=== PATIENT | female | born 2000 | race Caucasian/White ===

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

== ENCOUNTER 2020-10-06 08:07 | Emergency (ER) | payer OTHER, SELFPAY ==
[2020-10-06 08:17] VITALS: BP 127/80; PULSE 71; RESP 18; TEMP 36.6; O2SAT 100
--- NOTE | 2020-10-06 08:20 | ED.FEMALEGU ---
HPI - Female Genitourinary General Chief complaint: Urogenital-Female Stated complaint: poss uti Time Seen by Provider: 10/06/20 08:20 Source: patient History of Present Illness HPI Narrative: PATIENT PRESENTS WITH BURNING WHITH URINATION NO ABDOMINAL PAIN NO PELVIC PAIN NO CONCERN FOR STD NO GROSS HEMATURIA MD elicited complaint: dysuria and UTI Related Data Home Medications Medication Instructions Recorded Confirmed hydrocodone-acetaminophen 1 tablet PO DAILY PRN 12/15/18 03/09/19 Allergies Allergy/AdvReac Type Severity Reaction Status Date / Time cinnamon Allergy Severe ANAPHALAXIS Verified 10/06/20 08:24 ketorolac [From Toradol] Allergy Swelling Verified 10/06/20 08:25 tramadol Allergy Swelling Verified 10/06/20 08:24 APPLE JUICE Allergy Intermediate LIPS AND Uncoded 03/09/19 15:38 THROAT SWELLING Review of Systems Review of Systems: CONSTITUTIONAL: Denies fever, chills, or sweats. EYES: Denies visual changes, redness, or discharge. ENT: Denies rhinorrhea, congestion, sore throat, or otalgia. CARDIOVASCULAR: Denies chest pain, palpitations, or edema. RESPIRATORY: Denies cough or dyspnea. GASTROINTESTINAL: Denies abdominal pain, nausea, vomiting, or diarrhea. GENITOURINARY: Denies dysuria or hematuria. SKIN: Denies rash or itching. MUSCULOSKELETAL: Denies back pain, joint pain, or myalgia. NEUROLOGIC: Denies headache, numbness, or weakness. PSYCHIATRIC: Denies anxiety or depression. PMFSH Comments At time of signature, agree with nursing past medical, surgical, social and family history. There is no relevant family history pertinent to the presenting complaint Exam Narrative: GENERAL: Well-appearing, well-nourished, and in no acute distress. HEAD: Normocephalic, atraumatic. EYES: PERRLA and EOMI. ENT: Nares clear, no rhinorrhea or epistaxis. Mucous membranes moist. NECK: Supple. CHEST: Clear to auscultation. No respiratory distress. HEART: Regular rate and rhythm. No murmur heard. Normal peripheral pulses. ABDOMEN: Soft, nontender, nondistended, normal active bowel sounds. EXTREMITIES: Normal range of motion. No edema. SKIN: Warm, dry, no rash. NEURO: No focal deficits. Alert and oriented x3. [place] Coma Scale Eye Opening: Spontaneous 4 [place] Coma Scale Motor: Obeys Commands 6 [place] Coma Scale Verbal: Oriented 5 [place] Coma Scale Total 15 Course Vital Signs Vital signs: Vital Signs Temperature 36.6 C 10/06/20 08:17 Pulse Rate 71 10/06/20 08:17 Respiratory Rate 18 10/06/20 08:17 Blood Pressure 127/80 10/06/20 08:17 Pulse Oximetry 100 10/06/20 08:17 Temperature 36.6 C 10/06/20 08:17 Pulse Rate 71 10/06/20 08:17 Respiratory Rate 18 10/06/20 08:17 Blood Pressure 127/80 10/06/20 08:17 Pulse Oximetry 100 10/06/20 08:17 Critical dx considered and discussed with pt. Educated patient on red flag s/s and to go to ED if s/s occur. Discussed with pt when to return to [facility] or primary care provider. Pt gave verbal understanding, all questions were answered, and pt was agreeable to plan Regarding diagnosis, Regarding diagnostic results, Regarding treatment plan, Regarding prescription, Patient indicated understanding of instructions. Critical dx considered and discussed with pt. Educated patient on red flag s/s and to go to ED if s/s occur. Discussed with pt when to return to [facility] or primary care provider. Pt gave verbal undertstanding, all questions were answered, and pt was agreeable to plan.. MDM - Female Genitourinary Differential Diagnosis Differential diagnosis: Likely urinary tract infection, bacterial vaginosis, trichomoniasis, cervicitis, ovarian cyst, vaginitis, ruptured ovarian cyst, cyst of Bartholin's gland, cystitis, dysmenorrhea and other Medical Records Attestation: I reviewed the patient's medical records. Lab Data Labs: Urine Glucose Negative Refere
== END 2020-10-06 08:35 | disposition home or self-care (01) ==
PROVIDERS: Emergency Provider Nurse Practitioner Family; PCP Family Medicine
DX: N39.0 Urinary tract infection, site not specified (principal); M41.9 Scoliosis, unspecified
CPT/HCPCS: 81003; 87077; 87086; 87088; 87186; 99213; G0463

== ENCOUNTER 2020-11-09 09:06 | Emergency (ER) | payer OTHER, SELFPAY ==
--- NOTE | 2020-11-09 09:08 | ED.FEMALEGU ---
HPI - Female Genitourinary General Chief complaint: Urogenital-Female Stated complaint: poss UTI or bladder infection Time Seen by Provider: 11/09/20 09:08 Source: patient and RN notes reviewed History of Present Illness HPI Narrative: Patient is a 20-year-old female who presents the urgent care with complaints of a possible UTI. Patient states that she has had frequency and dysuria for the last 2 days. States that she can only use the bathroom 3 times a day while at work and she does have a history of UTIs due to that reason. Patient states that she did take Azo yesterday. Denies of any fever, chills, nausea, vomiting, abdominal pain. No other acute complaints. No acute distress noted. Patient aware of the plan of care. Some parts of this dictation were generated by voice recognition software and may contain typographical and/or grammatical inaccuracies. Related Data Home Medications Medication Instructions Recorded Confirmed hydrocodone-acetaminophen 1 tablet PO DAILY PRN 12/15/18 03/09/19 Allergies Allergy/AdvReac Type Severity Reaction Status Date / Time cinnamon Allergy Severe ANAPHALAXIS Verified 10/06/20 08:24 ketorolac [From Toradol] Allergy Swelling Verified 10/06/20 08:25 tramadol Allergy Swelling Verified 10/06/20 08:24 APPLE JUICE Allergy Intermediate LIPS AND Uncoded 03/09/19 15:38 THROAT SWELLING Review of Systems Review of Systems: CONSTITUTIONAL: Denies fever, chills, or sweats. EYES: Denies visual changes, redness, or discharge. ENT: Denies rhinorrhea, congestion, sore throat, or otalgia. CARDIOVASCULAR: Denies chest pain, palpitations, or edema. RESPIRATORY: Denies cough or dyspnea. GASTROINTESTINAL: Denies abdominal pain, nausea, vomiting, or diarrhea. GENITOURINARY: Reports of dysuria and urinary frequency SKIN: Denies rash or itching. MUSCULOSKELETAL: Denies back pain, joint pain, or myalgia. NEUROLOGIC: Denies headache, numbness, or weakness. All other systems reviewed are negative, except as documented in HPI. PMFSH Comments At the time of my signature, I reviewed and agree with the nursing past medical, surgical, social, and family history. There is no relevant family history pertinent to the patient complaint. Exam Narrative: GENERAL: This is a well-nourished, well-developed patient, in no apparent distress. HEAD: normocephalic, atraumatic. EYES: PERRL. Sclera clear/white. Vision is grossly intact. EARS: External ears normal NOSE: External nose normal with no obvious nasal discharge, nares without redness, no rhinorrhea. THROAT: Mucous membranes moist NECK: Neck supple CARDIOVASCULAR: Regular rate and rhythm without murmurs, gallops, or rubs. RESPIRATORY: Clear to auscultation. Breath sounds equal bilaterally. No wheezes, rales, or rhonchi. GASTROINTESTINAL: Abdomen soft, non-tender, nondistended. SKIN: warm, intact with no suspicious lesions or rash, good texture and turgor. NEURO: awake, alert, and oriented to person, place and time. There were no obvious focal neurologic abnormalities. EXTREMITIES: No clubbing, cyanosis, or edema. BACK: Negative bilateral CVA tenderness Course Vital Signs Vital signs: Vital Signs Temperature 98.0 F 11/09/20 09:15 Pulse Rate 81 11/09/20 09:15 Respiratory Rate 20 11/09/20 09:15 Blood Pressure 135/60 11/09/20 09:15 Pulse Oximetry 100 11/09/20 09:15 Temperature 98.0 F 11/09/20 09:15 Pulse Rate 81 11/09/20 09:15 Respiratory Rate 20 11/09/20 09:15 Blood Pressure 135/60 11/09/20 09:15 Pulse Oximetry 100 11/09/20 09:15 Reviewed MDM - Female Genitourinary MDM Narrative Medical decision making narrative: Reviewed lab results with the patient. She is aware that urine analysis is indicative of a urinary tract infection. Advised the patient complete oral antibiotic regimen as prescribed. Be sure to eat and drink with the medication. We will culture the urine and call you if medication needs to be
[2020-11-09 09:15] VITALS: BP 135/60; PULSE 81; RESP 20; TEMP 36.7; O2SAT 100
== END 2020-11-09 09:55 | disposition home or self-care (01) ==
PROVIDERS: Emergency Provider Nurse Practitioner Family; PCP Family Medicine
DX: N39.0 Urinary tract infection, site not specified (principal); M41.9 Scoliosis, unspecified
CPT/HCPCS: 81003; 87086; 87088; 99213; G0463

== ENCOUNTER 2024-01-26 11:09 | Emergency (ER) | payer SELFPAY ==
--- NOTE | ~2024-01-26 | XR_ITS ---
EXAMINATION: XR abdomen/kub 1V DATE: 01/26/2024 12:43 INDICATION: Abdominal pressure and bloating. Small bowel movements. TECHNIQUE: A supine view of the abdomen on 2 radiographs was obtained. COMPARISON: None. FINDINGS: Moderate amount of colonic stool predominantly in the cecum. No dilated gas-filled loops of bowel to suggest obstruction. Bones and soft tissues are unremarkable. IMPRESSION: 1. Bowel gas pattern with moderate amount of colonic stool. Reviewed, dictated and finalized at location A. SPLICER
[2024-01-26 11:32] VITALS: BP 120/83; PULSE 70; RESP 16; TEMP 36.4; O2SAT 100
[2024-01-26 11:49] LABS: EDUAAPPEAR Clear; EDUABILI Negative (Negative); EDUABLOOD Negative (Negative); EDUACOLOR1 Yellow; EDUAGLUCOSE Negative (Negative); EDUAKETONE Trace (Negative); EDUALEUKO Negative (Negative); EDUANITRATE Negative (Negative); EDUAPH 7.5; EDUAPROTEIN Negative (Negative); EDUASPGRAVITY 1.025; EDUAUROBILI 0.2
--- NOTE | 2024-01-26 12:15 | ED.ABDPAIN ---
HPI - Abdominal Pain General Chief Complaint: Abdominal Pain Stated Complaint: Stomach Pain Time Seen by Provider: 01/26/24 12:15 Source: patient Mode of arrival: ambulatory Limitations: no limitations History of Present Illness HPI narrative: 23 yo F presents with c/o lower ABD pressure and bloating for approx. 1 wk. NO urinary symptoms. Normally only has a small BM every couple of days but has been worse. Started an OTC medication to improve bowel movement but unsure if it's helping. Denies nausea vomiting. Last menstrual period was 1st week of the month. No concerns for . All systems reviewed and negative except as noted above. Related Data Home Medications ?Medication ?Instructions ?Recorded ?Confirmed ?Last Taken ?Type No Home Meds 01/26/24 Unknown History Allergies Allergy/AdvReac Type Severity Reaction Status Date / Time cinnamon Allergy Severe ANAPHALAXIS Verified 01/26/24 11:44 ketorolac (From Toradol) Allergy Swelling Verified 01/26/24 11:44 tramadol Allergy Swelling Verified 01/26/24 11:44 APPLE JUICE Allergy Intermediate LIPS AND Uncoded 01/26/24 11:44 THROAT SWELLING Review of Systems Review of Systems: CONSTITUTIONAL: Denies fever, chills, or sweats. EYES: Denies visual changes, redness, or discharge. ENT: Denies rhinorrhea, congestion, sore throat, or otalgia. CARDIOVASCULAR: Denies chest pain, palpitations, or edema. RESPIRATORY: Denies cough or dyspnea. GASTROINTESTINAL: Reports abdominal bloating, decreased bowel movements. Denies nausea, vomiting, or diarrhea. GENITOURINARY: Denies dysuria or hematuria. SKIN: Denies rash or itching. MUSCULOSKELETAL: Denies back pain, joint pain, or myalgia. NEUROLOGIC: Denies headache, numbness, or weakness. PSYCHIATRIC: Denies anxiety or depression. All other systems reviewed are negative, except as documented in HPI. PMFSH Comments At time of signature, agree with nursing past medical, surgical, social and family history. There is no relevant family history pertinent to the presenting complaint. Exam Narrative: GENERAL: This is a well-nourished, well-developed patient, in no apparent distress. HEAD: normocephalic, atraumatic. EYES: PERRL. Sclera clear/white. Vision is grossly intact. EARS: External ears normal NOSE: External nose normal NECK: Neck supple, non-tender without lymphadenopathy, masses or thyromegaly. CARDIOVASCULAR: Regular rate and rhythm without murmurs, gallops, or rubs. RESPIRATORY: Clear to auscultation. Breath sounds equal bilaterally. No wheezes, rales, or rhonchi. GASTROINTESTINAL: Abdomen soft, suprapubic tenderness, nondistended. Bowel sounds are hypo active. No hepato-splenomegaly, or palpable masses. No guarding. SKIN: warm, Dry, intact with no suspicious lesions or rash, good texture and turgor. NEURO: awake, alert, and oriented to person, place and time. There were no obvious focal neurologic abnormalities. EXTREMITIES: No joint tenderness, effusion, or edema noted. Course Course Level of Care: [facility] Visit Vital Signs Vital signs: Vital Signs Temperature 36.4 C L 01/26/24 11:32 Pulse Rate 70 01/26/24 11:32 Respiratory Rate 16 01/26/24 11:32 Blood Pressure 120/83 01/26/24 11:32 Pulse Oximetry 100 01/26/24 11:32 Oxygen Delivery Room Air 01/26/24 11:32 Temperature 36.4 C L 01/26/24 11:32 Pulse Rate 70 01/26/24 11:32 Respiratory Rate 16 01/26/24 11:32 Blood Pressure 120/83 01/26/24 11:32 Pulse Oximetry 100 01/26/24 11:32 Oxygen Delivery Room Air 01/26/24 11:32 Reviewed MDM - Abdominal Pain MDM Narrative Medical decision making narrative: Discussed x-ray results with patient. X-ray negative for bowel obstruction. Moderate amount constipation seen. Recommend patient start [id number] MiraLax. Recommend patient start daily stool softener and increase fiber. Will go to the ER for any worsening of symptoms. Patient is aware of diagnosis, understands and agrees to treatment plan. Anticipatory guidance given. Patient agrees to follow-up as directed and is aware of reasons to seek care at the emergency department. Portions of this record may have been created with voice recognition software Differential Diagnosis Differential diagnosis: Likely abdominal pain, constipation, diverticulitis, gastroenteritis and small bowel obstruction Lab Data Labs: Lab Results 01/26/24 Range/Units 11:40 POC Urine Color Yellow POC Urine Clarity Clear POC Urine pH 7.5 POC Ur Specif [place] 1.025 POC Urine Protein Negative (Negative) POC Ur Glucose (UA) Negative (Negative) POC Urine Ketones Trace (Negative) POC Urine Blood Negative (Negative) POC Urine Nitrite Negative (Negative) POC Urine Bilirubin Negative (Negative) POC Urine Urobilinogen 0.2 POC U Leukocyte Esteras Negative (Negative) Imaging Data My impression: Agree with radiologist Radiologist's impression: ITS Impressions Abdomen X-Ray 01/26/24 12:50 IMPRESSION: 1. Bowel gas pattern with moderate amount of colonic stool. Discharge Plan Discharge Clinical Impression: Constipation Patient Disposition: Home, Self-Care Condition: Stable Instructions: Constipation (ED) Additional Instructions: The x-ray of your abdomen showed a moderate amount of stool concerning for constipation. Take [id number] MiraLax as directed on packaging. Take a stool softener daily. Increase fiber in diet. Drink at least 64 oz of water a day. Exercise for at least 30 minutes a day. Follow-up with your primary care physician if not improving. If you have severe abdominal pain go to the ER. Patient Language: Luxembourgish Prescriptions: No Action nitrofurantoin monohyd/m-cryst [Macrobid] 100 mg capsule 100 mg PO Q12H 7 Days Qty: 14 0RF Rx Instructions: must administer with a meal/food phenazopyridine [Pyridium] 100 mg tablet 100 mg PO TID PRN (Reason: pain) 3 Days Qty: 9 0RF No Home Meds Follow-up/Referrals: PHYSICIAN,MILL ROLL REWINDER [Primary Care Provider] - Time of Disposition: 13:10
== END 2024-01-26 13:13 | disposition home or self-care (01) ==
PROVIDERS: Emergency Provider Nurse Practitioner Family
DX: K59.00 Constipation, unspecified (principal)
CPT/HCPCS: 74018; 81003; 99213; G0463